=== PATIENT | male | born 1990 | race Caucasian/White ===

== ENCOUNTER 2025-02-19 09:08 | Emergency (ER) | payer OTHER ==
[~2025-02-19 09:08] MED LIST: ALBU8.5H; CETI-24; ESOM40CA35; FLUT12HF3; MONT10TA97
[2025-02-19] MEDS: KETOROLAC 30 MG/ML 1 ML VIAL IV ONE ×2 (11:24→13:53)
[2025-02-19] MEDS: LIDOCAINE 5% PATCH TD ONE (11:24)
[2025-02-20 02:36] VITALS: BP 116/63; TEMP 97.4; O2SAT 97
== END 2025-02-20 02:41 | disposition short-term general hospital (02) ==
LOC: EDBD 09:08 → M ED 09:08
DX: M51.26 Other intervertebral disc displacement, lumbar region (principal); M51.27 Other intervertebral disc displacement, lumbosacral region; M54.16 Radiculopathy, lumbar region; X50.0XXA Overexertion from strenuous movement or load, initial encounter; K21.9 Gastro-esophageal reflux disease without esophagitis; I48.91 Unspecified atrial fibrillation; Z88.0 Allergy status to penicillin; Z88.8 Allergy status to other drugs, medicaments and biological substances; Z91.010 Allergy to peanuts; Z91.018 Allergy to other foods; Z90.49 Acquired absence of other specified parts of digestive tract; Z79.52 Long term (current) use of systemic steroids; Z79.899 Other long term (current) drug therapy; Y92.89 Other specified places as the place of occurrence of the external cause; Y93.89 Activity, other specified; Y99.1 Military activity
CPT/HCPCS: 72148; 96374; 96375; 96376; 99285; J1885; J2919; J3360